=== PATIENT | male | born 1970 | race Caucasian/White ===

== ENCOUNTER 2025-08-04 15:39 | Inpatient (IN) ==
--- NOTE | 2025-08-04 16:07 | Emergency Department Note ---
Impression & Plan Acute diverticulitis, Pleural effusion ED Provider Note NAME: ELIA JOHNSON AGE: 55 SEX: M : 1970 ARRIVES VIA: Walk-In INFORMANT: Patient, ED PROVIDER(S): Geovani Thomas DO CHIEF COMPLAINT: Abdominal pain HPI: The patient is a 55-year-old male who presented to the emergency department for evaluation of left-sided abdominal pain. The patient started having left- sided back pain over the course of the last few days. The patient states he went to see his family doctor today. He was having some low-grade fevers. He was sent for CT of the abdomen pelvis. He was advised to come to emergency department for admission and IV antibiotics. ROS: See above HPI for pertinent positives & negatives. A total of 10 systems reviewed and were otherwise negative. PAST MEDICAL HISTORY: See Below PAST SURGICAL HISTORY: See Below FAMILY HISTORY: See Below SOCIAL HISTORY: See Below HOME MEDICATIONS: See Below ALLERGIES: See Below VITALS: See Below PHYSICAL EXAMINATION: GENERAL: Patient is awake alert in no acute distress patient is resting comfortably and showing no signs of anxiety EYES: The conjunctivae are clear. The pupils are round and reactive. EARS, NOSE, MOUTH AND THROAT: The nose is without any evidence of any deformity. NECK: The neck is nontender and supple. RESPIRATORY: Normal respiratory effort is noted there is no evidence of wheezing rhonchi or rales CARDIOVASCULAR: Regular rate and rhythm noted there no murmurs rubs or gallops normal S1 normal S2. GASTROINTESTINAL: The abdomen was mildly distended. There is diffuse tenderness to palpation with guarding in the left upper and left lower quadrants. MUSCULOSKELETAL/EXTREMITIES: There is no evidence of gross deformity full range of motion is noted in the hips and shoulders. SKIN: There is no obvious evidence of any rash. There are no petechiae, pallor or cyanosis noted. NEUROLOGIC: Patient is awake alert and oriented x3. Gait was steady. MEDICAL DECISION MAKING: The patient is a 55-year-old male who presented to the emergency department for an evaluation of abdominal pain. The patient was seen by his family doctor. The patient had an outpatient CAT scan which did show diverticulitis with microperforation. The patient was told to come to the emergency department for further evaluation. The patient was treated with IV antibiotics in emergency department. I discussed the patient's laboratory and radiographic studies with him. He was found to have signs of pleural effusion on CT which I think is likely due to diaphragmatic irritation. There was also a questionable area that could be a pulmonary embolism. The patient denies having any chest pain. He was not tachycardic. I discussed the patient's CT findings with the admitting team. I will defer to them whether or not they wish to repeat the CAT scan including the chest as well at this time. Triage Nursing notes reviewed. Prior medical records reviewed Vital Signs: reviewed and remarkable for no significant abnormalities Differential diagnosis: Etiologies such as appendicitis, diverticulitis, obstruction, inflammatory bowel disease, renal colic, PUD, biliary pathology, pancreatitis, mesenteric ischemia, aortic pathology, infections, genitourinary, UTI, perforated viscus, as well as others were entertained. ER treatment provided: See below Diagnostics interpreted by me: ECG: none Cardiac Monitoring: An order was placed for continuous cardiac monitoring. The monitor shows a rate of 81 bpm with sinus rhythm. Laboratory studies: As stated above and show below. Imaging studies: See below. Radiographic imaging was reviewed by myself Consultation(s): I discussed this case with Dr. Vasquez who is on-call for the [facility] hospitalist group. Past Med/Surg History Problem List (Updated 08/04/25 @ 16:48 by Geovani Thomas DO) Pleural effusion (Acute) Acute diverticulitis (Acute) Diverticulitis of large intestine with perforation Multiple lung nodules on CT Solitary lung nodule (Chronic) Prostate cancer (Chronic 06/30/20) Medical History History of rheumatic fever As a child age 5 Elevated PSA 06/19/2020 - 24.500 Surgical History History of prostatectomy (08/22/20) @ [facility] with Dr. Darell Roth History of prostate biopsy (06/30/20) Family History Mother Colorectal cancer, Onset Age: 70 Radiation & Chemo - Doing well currently Father No problems noted. Brother No problems noted. Sister No problems noted. Sister No problems noted. Son No problems noted. Daughter No problems noted. Daughter No problems noted. Daughter No problems noted. Social History Smoking Status: Never smoker Do You Dip or Chew Tobacco: No; Hx Alcohol Use: Yes Alcohol Intake Frequency: Monthly or Less Hx Substance Use: No Preferred Language: Yakut Visual Impairment: Limited Hearing Ability: Normal Beliefs That Will Affect Care: None marital status: Current Living Situation: Spouse current occupational status: employed current occupation: Education @ [employer] How many Children do You have: 4 Feels Safe at Home: Yes Childhood Exposure to Second-Hand Smoke: Yes (Mother smoked in home ) Diet: regular caffeine: Yes (2 cups of coffee/day ) during the past year weight has: remained stable Dental Care, Regularly: Yes Allergies Allergies Allergy/AdvReac Type Severity Reaction Status Date / Time No Known Allergies Allergy Verified 08/04/25 16:29 Home Meds Home Medications Medication Instructions Recorded Confirmed ascorbic acid (vitamin C) 500 mg 500 mg PO DAILY 07/25/20 08/04/25 capsule cholecalciferol (vitamin D3) 25 25 mcg PO DAILY 07/25/20 08/04/25 mcg (1,000 unit) capsule multivitamin 1 tab PO DAILY 07/25/20 08/04/25 olmesartan 20 mg tablet (Benicar) 20 mg PO DAILY 01/02/21 08/04/25 calcium 600 mg (as 1 tab PO DAILY 07/13/21 08/04/25 carbonate)-vitamin D3 10 mcg (400 unit) tablet (Calcium with Vitamin D) Immu-Power Ahcc 1 tab PO DIRECTED 08/04/25 08/04/25 omega-3 fatty acids 1,000 mg 1,000 mg PO DAILY 08/04/25 08/04/25 capsule Results & Data (ED) Vital Signs Vital Signs - 24 hr 08/04/25 15:46 Temperature 36.7 C Temperature Source Temporal Artery Scan Pulse Rate 81 Respiratory Rate 18 Respiratory Effort / Characteristics Non-Labored Respiratory Depth Normal Blood Pressure 144/87 H Blood Pressure Mean 106 Pulse Oximetry 96 Oxygen Delivery Method Room Air Sepsis Recent Fever Within 48 Hours No Sepsis New/Unexplained Change in Mental Status No Sepsis Action Taken by Nursing No Action Required Home Medications Current Medication List: was personally reviewed by me Laboratory Data Attestation: I reviewed the patient's lab results. 08/04/25 16:11 08/04/25 16:11 Lab Results 08/04/25 08/04/25 Range/Units 16:11 16:14 WBC 7.86 (4.8-10.8) K/ul RBC 4.26 L (4.70-6.10) M/uL Hgb 12.7 L (14.0-18.0) g/dl Hct 37.0 L (42.0-52.0) % MCV 86.9 (80.0-100.0) fL MCH 29.8 (25.0-34.0) pg MCHC 34.3 (32.0-36.0) g/dL RDW Std Deviation 39.8 (36.4-46.3) fL RDW Coeff of Henny 12.6 (11.5-14.5) % Plt Count 359 (130-400) K/uL MPV 8.3 L (9.4-12.4) fL Immature Gran % (Auto) 0.4 % Neut % (Auto) 65.2 % Lymph % (Auto) 20.0 % Morton % (Auto) 8.3 % Eos % (Auto) 5.7 % Baso % (Auto) 0.4 % Neut # (Auto) 5.13 (1.40-6.50) K/uL Lymph # (Auto) 1.57 (1.20-3.40) K/uL Morton # (Auto) 0.65 H (0.11-0.59) K/uL Eos # (Auto) 0.45 (0.00-0.50) K/uL Baso # (Auto) 0.03 (0.00-0.20) K/uL Immature Gran # (Auto) 0.03 (0.01-0.20) K/uL Urine Color Yellow Urine Appearance Clear (Clear) Urine pH 5.0 (4.5-7.5) Ur Specific Buchanan 1.042 H (1.000-1.030) Urine Protein Negative (Negative) Urine Glucose (UA) Negative (Negative) Urine Ketones Negative (Negative) Urine Blood Negative (Negative) Urine Nitrite Negative (Negative) Urine Bilirubin Negative (Negative) Urine Urobilinogen Negative (Negative) Ur Leukocyte Esterase Negative (Negative) Urine Comment Imaging Data Attestation: I personally reviewed and interpreted this imaging study as follows: My Impression: I reviewed the patient's outpatient CAT scan. My interpretation is diverticulitis noted, pleural effusion was noted on the lung windows, final report in the patient's EMR. Discharge Plan Visit Data Chief Complaint: GI Assessment Stated Complaint: REF BY DOC, HAD CT EARLIER, DX OF DIVERTICULITIS ED Provider: Geovani Thomas Discharge Problem: Acute diverticulitis, Pleural effusion Patient Disposition: Being Evaluated by Hospitalist Condition: Fair Forms Stand Alone Forms: My [facility] Prescriptions Prescriptions: No Action multivitamin Tablet 1 tab PO DAILY ascorbic acid (vitamin C) 500 mg capsule 500 mg PO DAILY cholecalciferol (vitamin D3) 25 mcg (1,000 unit) capsule 25 mcg PO DAILY calcium carbonate-vitamin D3 [Calcium with Vitamin D] 600 mg(1,500mg) -400 unit tablet 1 tab PO DAILY olmesartan [Benicar] 20 mg tablet 20 mg PO DAILY omega-3 fatty acids 1,000 mg Capsule 1,000 mg PO DAILY Immu-Power Ahcc 1 tab PO DIRECTED Rx Instructions: TAKES 1 TAB QAM, THEN 2 TABS QPM Referrals Referrals: Reynold Moeller [Primary Care Provider] -
--- NOTE | 2025-08-04 16:29 | History & Physical Report ---
Date of Service August 04, 2025 Assessment & Plan (1) Diverticulitis of large intestine with perforation: (2) Pleural effusion: Plan In summary this is a 55-year-old male who presented to the [facility] after an outpatient CT abdomen pelvis with intravenous contrast revealed mid descending colonic diverticulitis with extraluminal air pocket formation. #Acute diverticulitis of the descending colon with perforation Patient presented with subjective fever, progressive abdominal pain; patient does not have any acute findings on physical exam concerning for an acute abdomen nor peritonitis; CT abdomen pelvis with intravenous contrast was reviewed, concerning for extraluminal air pocket formation without free air in the abdomen; blood cultures have been obtained in the emergency department; CRP is elevated to 10.9, reducing the potential risk for progression of further complication which is typically seen at measures greater than 14 Obtain vital signs every 4 hours for 24 hours then per shift Out of bed to chair, gradually activity as the patient tolerates Clear liquid diet, gradually based on tolerance; if patient is unable to tolerate clear liquid diet, please contact attending physician to initiate intravenous fluids at maintenance rate Measure intake and output every shift Continue Zosyn 4.5 g IV every 8 hours Follow daily CBC with manual differential, renal function panel General Surgery has been consulted given the patient's risk for progression including pericolic extraluminal air, fluid collections, the length of the colonic segment affected, symptom duration Admission and Anticipated Discharge Date Admission Date: 08/04/2025 Anticipated date of discharge: 08/06/25 History of Present Illness Chief Complaint: Left sided abdominal pain Primary Care Provider: Reynold Moeller Mr. Piedra is a 55-year-old male whose active medical conditions include prostate cancer in sustained remission, essential hypertension, who presented to the [facility] on 08/[address] abdomen pelvis with contrast revealed acute diverticulitis. The patient reports beginning on 07/30 the experience left upper quadrant abdominal pain that was sharp and intermittent in nature without radiation. Over the subsequent 5 days their abdominal pain progressively involved more of the left lower quadrant. They endorse anorexia, nausea, decreased flatulence and bowel movement frequency, subjective fevers, chills. They deny any increasing abdominal distention, eructation, hematemesis, hematochezia, melanotic stool. They have not been on any recent antibiotic courses. There have been no recent colonic procedures or colonoscopies. Allergies Allergy/AdvReac Type Severity Reaction Status Date / Time No Known Allergies Allergy Verified 08/04/25 16:29 Home Medications Medication Instructions Recorded Confirmed Type ascorbic acid (vitamin C) 500 mg 500 mg PO DAILY 07/25/20 08/04/25 History capsule cholecalciferol (vitamin D3) 25 25 mcg PO DAILY 07/25/20 08/04/25 History mcg (1,000 unit) capsule multivitamin 1 tab PO DAILY 07/25/20 08/04/25 History olmesartan 20 mg tablet (Benicar) 20 mg PO DAILY 01/02/21 08/04/25 History calcium 600 mg (as 1 tab PO DAILY 07/13/21 08/04/25 History carbonate)-vitamin D3 10 mcg (400 unit) tablet (Calcium with Vitamin D) Immu-Power Ahcc 1 tab PO DIRECTED 08/04/25 08/04/25 History omega-3 fatty acids 1,000 mg 1,000 mg PO DAILY 08/04/25 08/04/25 History capsule Past Med/Surg History Problem List (Updated 08/04/25 @ 17:00 by Jay Vasquez DO) Pleural effusion (Acute) Diverticulitis of large intestine with perforation Multiple lung nodules on CT Medical History (Updated 08/04/25 @ 17:00 by Jay Vasquez DO) Prostate cancer (06/30/20) History of rheumatic fever As a child age 5 Elevated PSA 06/19/2020 - 24.500 Surgical History History of prostatectomy (08/22/20) @ [facility] with Dr. Darell Roth History of prostate biopsy (06/30/20) Family History (Updated 08/04/25 @ 17:00 by Jay Vasquez DO) Mother Colorectal cancer, Onset Age: 70 Radiation & Chemo - Doing well currently Father No problems noted. Brother No problems noted. Sister Colon cancer Sister No problems noted. Son No problems noted. Daughter No problems noted. Daughter No problems noted. Daughter No problems noted. 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: 4 Feels Safe at Home: Yes Childhood Exposure to Second-Hand Smoke: Yes (Mother smoked in home ) Diet: regular caffeine: Yes (2 cups of coffee/day ) during the past year weight has: remained stable Dental Care, Regularly: Yes Review of Systems Review of Systems: Review of constitutional, gastrointestinal, cardiovascular, pulmonary systems was unremarkable other than as documented in the HPI above Physical Exam Physical Exam: General: Adult male in no acute distress Vital Signs: Reviewed HEENT: Tacky mucous membranes; pupils equally round reactive to light; extraocular motion intact Pulmonary: Symmetric chest wall rise, restricted secondary to left upper abdominal quadrant pain at end phase inhalation; clear to auscultation bilaterally Cardiovascular: Regular rate and rhythm without murmurs, rubs, or gallops; S1 and S2 normal; bilateral radial pulse 2+ Gastrointestinal: Soft, nondistended; low-frequency high-pitched bowel sounds present throughout the abdomen; tender to deep palpation in the left upper th rough lower quadrant and in the left flank without radiation; the remaining abdomen is nontender to palpation; there is no guarding nor peritoneal findings present on exam at this time; percussion does not elicit significant tenderness Neurologic: Cranial nerves II through XII grossly intact; no discernible focal weakness nor paresthesia Results & Data Results & Data Vital Signs (Past 12 Hours) Vital Signs Temp Pulse Resp BP Pulse Ox O2 Del Method 08/04/25 15:46 36.7 C 81 18 144/87 H 96 Room Air Laboratory Results CBC is relatively unremarkable Elevated total bilirubin of 1.1 CRP 10[address] abdomen pelvis with intravenous contrast obtained 08/04 in the outpatient setting is remarkable for descending colonic acute diverticulitis with pe ricolonic fat stranding, peritoneal thickening with extraluminal air loculation within the left paracolic gutter without a well-defined abscess for percutaneous intervention Code Status & VTE Plan Code Status Full code VTE Prophylaxis Plan VTE Prophylaxis will be ordered: Yes PG Care Time/CCT Total # of Minutes Spent Total Time Spent with Patient: Total time spent is greater than 50% in coordination of care (as documented) at patient's floor/unit and/or counseling patient: Coding Level of Care Code 91736 INT INP/OBS CARE MIN Diagnoses Diverticulitis of large intestine with perforation without bleeding K57.20 Diverticulitis bleeding: without bleeding Pleural effusion J90 (1) Diverticulitis of large intestine with perforation Diverticulitis bleeding: without bleeding Qualified Code(s): K57.20 - Diverticulitis of large intestine with perforation and abscess without bleeding
[2025-08-04 16:33] LABS: Appearance Urine Clear (Clear); Glucose Urine UA Negative (Negative)
[2025-08-04 16:35] LABS: Hematocrit (blood only) 37.0 % (42.0-52.0); Hemoglobin 12.7 g/dl (14.0-18.0); Immature Granulocytes # (auto) 0.03 K/uL (0.01-0.20); Immature Granulocytes % (auto) 0.4 %; Mean Corpuscular Hemoglobin 29.8 pg (25.0-34.0); Mean Corpuscular Volume 86.9 fL (80.0-100.0); Platelet Count 359 K/uL (130-400); RDW Standard Deviation 39.8 fL (36.4-46.3); Red Blood Count 4.26 M/uL (4.70-6.10); White Blood Count 7.86 K/ul (4.8-10.8)
[2025-08-04] MEDS: PIPERACILLIN/TAZOBACTAM 4.5 GM/100 ML BAG IV ONE (16:51)
[2025-08-04] MEDS: SODIUM CHLORIDE 0.9% 1,000 ML IV ONE (16:51)
[2025-08-04 16:59] LABS: Alanine Aminotransferase 40 U/L (7-52); Albumin Globulin Ratio 1.0 (0.9-2); Albumin Level 4.0 gm/dl (3.4-5.0); Alkaline Phosphatase 71 U/L (34-104); Anion Gap 9 (3-11); Bilirubin,Total 1.1 mg/dl (0.2-1.0); Blood Urea Nitrogen 15 mg/dl (6-23); Calcium 9.2 mg/dl (8.6-10.3); Carbon Dioxide 24 mmol/L (21-32); Chloride 105 mmol/L (98-107); Creatinine Clr Calc Pharmacy 97.9 ml/min; Globulin 3.9 gm/dl (2.5-4.0); Glucose 106 mg/dl (70-99(Fasting)); Lipase 28 U/L (11-82); Sodium 138 mmol/L (136-145); Total Protein 7.9 gm/dl (6.0-8.3)
[2025-08-04 17:48] LABS: Potassium 3.7 mmol/L (3.5-5.1)
[2025-08-04] MEDS: ENOXAPARIN INJ 40 MG/0.4 ML SYR SQ SCH (18:27)
--- NOTE | 2025-08-04 19:56 | Surgery Consultation ---
Date of Consultation August 04, 2025 Assessment & Plan (1) Diverticulitis of large intestine with perforation: The patient has been admitted on the hospitalist service and general surgery has been asked to see secondary to diverticulitis. Recommendations are as follows: Analgesics to be provided Antiemetics to be provided Patient is currently on a clear liquid diet but patient does not have much of an appetite and he does continue to have left-sided abdominal pain, therefore I will back the patient back down to n.p.o. status Will initiate intravenous fluids for hydration Serial labs to be followed The patient is receiving antibiotics in the form of Zosyn which should continue Will consider advancing the patient's diet as his clinical exam improvesWill begin diet advancement at the appropriate time with clear liquids I did discuss with the patient the rationale for conservative management and as patient is nontoxic-appearing at this time I believe conservative measures are warranted Additional recommendations will be forthcoming based on his clinical course as it unfolds History of Present Illness Reason for Consultation: Diverticulitis Attending Physician: Jay Vasquez, History of Present Illness This is a 55-year-old male who presented to [facility] today secondary to abdominal pain. The patient says he for approximately 5 days he has been having some left-sided abdominal pain. He has had associated nausea without emesis. He denies any fevers, shakes, or chills. Patient notes he has never formally been diagnosed with diverticulitis but he has had similar symptoms in the past which self resolved without any active medical treatment. He notes that he felt that his current symptomatology would get better as it had in the past but since it did not resolve over the ensuing 5 days he had an outpatient CT scan performed and truly delineated below, and the results of this prompted his referral to the emergency department. Patient notes that he has had a colonoscopy performed in November of this year and to the best of his knowledge there is no significant pathology noted on this study. Patient notes that he has had prior abdominal surgeries in the form of a robotic prostatectomy performed at [facility]. This patient did have a CT scan of the abdomen pelvis performed this morning. The CT scan showed the patient had acute diverticulitis of the mid descending colon with concern for microperforation as there were extraluminal air locules and trace ascites in the left paracolic gutter. There is no evidence of drainable abscess at this time. There is also moderate fecal retention noted in the rectum. Since arrival to [facility] the patient has had labs performed including CBC were white blood cell count platelet count were normal. Hemoglobin and hematocrit were 12.7 and 37.0. Chemistry profile showed sodium a nd potassium as well as the BUN and creatinine were normal. He had a urinalysis that was not indicative of infection. At the time of my interview he was resting comfortably in bed and he was in no d istress. Allergies Allergy/AdvReac Type Severity Reaction Status Date / Time No Known Allergies Allergy Verified 08/04/25 16:29 Home Medications Medication Instructions Recorded Confirmed Type ascorbic acid (vitamin C) 500 mg 500 mg PO DAILY 07/25/20 08/04/25 History capsule cholecalciferol (vitamin D3) 25 25 mcg PO DAILY 07/25/20 08/04/25 History mcg (1,000 unit) capsule multivitamin 1 tab PO DAILY 07/25/20 08/04/25 History olmesartan 20 mg tablet (Benicar) 20 mg PO DAILY 01/02/21 08/04/25 History calcium 600 mg (as 1 tab PO DAILY 07/13/21 08/04/25 History carbonate)-vitamin D3 10 mcg (400 unit) tablet (Calcium with Vitamin D) Immu-Power Ahcc 1 tab PO DIRECTED 08/04/25 08/04/25 History omega-3 fatty acids 1,000 mg 1,000 mg PO DAILY 08/04/25 08/04/25 History capsule Patient History Medical History Prostate cancer (06/30/20) History of rheumatic fever As a child age 5 Elevated PSA 06/19/2020 - 24.500 Surgical History History of prostatectomy (08/22/20) @ [facility] with Dr. Darell Roth History of prostate biopsy (06/30/20) Family History Mother Colorectal cancer, Onset Age: 70 Radiation & Chemo - Doing well currently Father No problems noted. Brother No problems noted. Sister Colon cancer Sister No problems noted. Son No problems noted. Daughter No problems noted. Daughter No problems noted. Daughter No problems noted. 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 Feels Safe at Home: Yes Childhood Exposure to Second-Hand Smoke: Yes (Mother smoked in home ) Diet: regular caffeine: Yes (2 cups of coffee/day ) during the past year weight has: remained stable Dental Care, Regularly: Yes Review of Systems Review of Systems: All systems reviewed & are unremarkable except as noted in HPI & below Physical Exam Constitutional: WD/WN, vitals as above Eyes: no conjunctival abnormality ENMT: Ears: no hearing impairment and no external ear abnormality Mouth: no oropharynx abnormality Neck: trachea midline Respiratory: normal respiratory effort; no respiratory distress and no labored breathing Cardiovascular: Rate/Rhythm: regular rate and regular rhythm Gastrointestinal (Abdomen): Patient's abdomen is soft, nondistended, nonrigid. Patient does not have any rebound tenderness, guarding, or signs of peritonitis. The patient did have pain with palpation on the left side of his abdomen which appeared to be greatest in the left lower quadrant. Musculoskeletal: No calf tenderness Skin: no rashes Neurologic: moves all extremities Psychiatric: A+Ox3, euthymic affect Results & Data Vital Signs (Past 12 Hours) Vital Signs Temp Pulse Pulse Resp BP BP Pulse Ox 08/04/25 19:33 36.9 C 70 18 142/94 H 95 08/04/25 18:31 71 08/04/25 17:47 37.2 C 71 18 154/96 H 97 08/04/25 17:25 69 20 140/89 97 08/04/25 17:01 73 08/04/25 16:53 73 20 140/89 95 08/04/25 16:52 71 20 95 08/04/25 15:46 36.7 C 81 18 144/87 H 96 O2 Del Method 08/04/25 19:33 Room Air 08/04/25 18:31 08/04/25 17:47 Room Air 08/04/25 17:25 Room Air 08/04/25 17:01 08/04/25 16:53 Room Air 08/04/25 16:52 08/04/25 15:46 Room Air PG Care Time/CCT Total # of Minutes Spent Total Time Spent with Patient: Total time spent is greater than 50% in coordination of care (as documented) at patient's floor/unit and/or counseling patient: Coding Level of Care Code 76741 IN/OBS CONSULT LVL 5,80M Diagnoses Diverticulitis of large intestine with perforation without bleeding K57.20 Diverticulitis bleeding: without bleeding (1) Diverticulitis of large intestine with perforation Diverticulitis bleeding: without bleeding Qualified Code(s): K57.20 - Diverticulitis of large intestine with perforation and abscess without bleeding
[2025-08-04] MEDS: ACETAMINOPHEN 1,000 MG/100 ML VIAL IV STA (19:57)
[2025-08-04] MEDS: SODIUM CHLORIDE 0.9% 1,000 ML IV SCH (20:59)
[2025-08-04] MEDS: PIPERACILLIN/TAZOBACTAM 4.5 GM/100 ML BAG IV SCH (22:36)
--- NOTE | 2025-08-05 07:12 | Hospitalist Progress Note ---
Date of Service August 05, 2025 Assessment & Plan (1) Diverticulitis of large intestine with perforation: (2) Pleural effusion: Plan In summary this is a 55-year-old male who presented to the [facility] after an outpatient CT abdomen pelvis with intravenous contrast revealed mid descending colonic diverticulitis with extraluminal air pocket formation. #Acute diverticulitis of the descending colon with perforation Patient presented with subjective fever, progressive abdominal pain; patient does not have any acute findings on physical exam concerning for an acute abdomen nor peritonitis; CT abdomen pelvis with intravenous contrast was reviewed, concerning for extraluminal air pocket formation without free air in the abdomen; blood cultures have been obtained in the emergency department; CRP is elevated to 10.9, reducing the potential risk for progression of further complication which is typically seen at measures greater than 14 Obtain vital signs per shift Out of bed to chair, gradually activity as the patient tolerates Surgery deescalated to n.p.o with sips of water Measure intake and output every shift Continue Zosyn 4.5 g IV every 8 hours Follow daily CBC with manual differential, renal function panel General Surgery has been consulted given the patient's risk for progression including pericolic extraluminal air, fluid collections, the length of the colonic segment affected, symptom duration Admission and Anticipated Discharge Date Admission Date: August 04, 2025 Anticipated date of discharge: 08/07/25 Subjective Mr. Piedra is a 55-year-old male whose active medical conditions include prostate cancer in sustained remission, essential hypertension, who presented to the [facility] on 08/[address] abdomen pelvis with contrast revealed acute diverticulitis. No acute overnight events; patient feels much improved this morning, still without much appetite but without pain at rest Review of Systems Review of Systems: Review of constitutional, gastrointestinal, cardiovascular, pulmonary systems was unremarkable other than pertinent findings summarized above Physical Exam Physical Exam: General: Adult male in no acute distress Vital Signs: Reviewed HEENT: Moist mucous membranes; pupils equally round reactive to light; extraocular motion intact Pulmonary: Symmetric chest wall rise, no longer with splinting; clear to auscultation bilaterally Cardiovascular: Regular rate and rhythm without murmurs, rubs, or gallops; S1 and S2 normal; bilateral radial pulse 2+ Gastrointestinal: Soft, nondistended; low-frequency high-pitched bowel sounds present throughout the abdomen; tender to deep palpation in the left upper through lower quadrant and in the left flank without radiation; the remaining abdomen is nontender to palpation; there is no guarding nor peritoneal findings present on exam at this time; percussion does not elicit significant tenderness Neurologic: Cranial nerves II through XII grossly intact; no discernible focal weakness nor paresthesia Results & Data Results & Data Vital Signs (Past 12 Hours) Vital Signs Temp Pulse Pulse Resp BP Pulse Ox O2 Del Method 08/05/25 06:58 67 08/05/25 03:44 36.9 C 69 16 137/93 95 Room Air 08/04/25 23:22 36.8 C 67 18 127/78 95 Room Air 08/04/25 21:46 71 08/04/25 19:33 36.9 C 70 18 142/94 H 95 Room Air PG Care Time/CCT Total # of Minutes Spent Total Time Spent with Patient: Total time spent is greater than 50% in coordination of care (as documented) at patient's floor/unit and/or counseling patient: Coding Level of Care Code 84581 SUB INP/OBS CARE MIN Diagnoses Diverticulitis of large intestine with perforation without bleeding K57.20 Diverticulitis bleeding: without bleeding Pleural effusion J90 (1) Diverticulitis of large intestine with perforation Diverticulitis bleeding: without bleeding Qualified Code(s): K57.20 - Diverticulitis of large intestine with perforation and abscess without bleeding
[2025-08-05] MEDS: LACTATED RINGER'S 1,000 ML IV SCH (07:51)
[2025-08-05 08:12] LABS: Hematocrit (blood only) 34.9 % (42.0-52.0); Hemoglobin 11.8 g/dl (14.0-18.0); Immature Granulocytes # (auto) 0.02 K/uL (0.01-0.20); Immature Granulocytes % (auto) 0.3 %; Mean Corpuscular Hemoglobin 29.3 pg (25.0-34.0); Mean Corpuscular Volume 86.6 fL (80.0-100.0); Platelet Count 307 K/uL (130-400); RDW Standard Deviation 39.4 fL (36.4-46.3); Red Blood Count 4.03 M/uL (4.70-6.10); White Blood Count 5.81 K/ul (4.8-10.8)
[2025-08-05 09:03] LABS: Albumin Level 3.5 gm/dl (3.4-5.0); Anion Gap 8.0 (3-11); Blood Urea Nitrogen 13.0 mg/dl (6-23); Calcium 8.5 mg/dl (8.6-10.3); Carbon Dioxide 22.0 mmol/L (21-32); Chloride 109.0 mmol/L (98-107); Creatinine Clr Calc Pharmacy 83.3 ml/min; Glucose 107.0 mg/dl (70-99(Fasting)); Potassium 3.8 mmol/L (3.5-5.1); Sodium 139.0 mmol/L (136-145)
--- NOTE | 2025-08-05 09:45 | Surgery Progress Note ---
Date of Service August 05, 2025 Assessment & Plan (1) Diverticulitis of large intestine with perforation: Plan: He may have sips of clears today Continue his IV antibiotics His white blood cell count is normal and he is afebrile No plans for any surgical intervention Admission and Anticipated Discharge Date Admission Date: August 04, 2025 Subjective Patient seen and examined. Still with some left-sided abdominal pain. Afebrile. Review of Systems Constitutional: no fever and no chills Respiratory: no cough and no dyspnea Cardiovascular: no chest pain and no dyspnea on exertion Gastrointestinal: + abdominal pain; no nausea and no vomit ing Genitourinary: no dysuria, no post-void dribbling or no nocturia Integumentary: no acne and no lesions Psychiatric: no behavioral changes and no depression Hematologic / Lymphatic: no easy bleeding and no easy bruising Physical Exam Constitutional: WD/WN, vitals as above Respiratory: normal respiratory effort, lungs clear to auscultation Cardiovascular: RRR, no murmur, no edema Gastrointestinal (Abdomen): Inspection/Auscultation: abdomen normal to inspection; abdomen not distended Percussion/Palpation: + abdomen tender (Left side) and abdomen soft Skin: no rashes, warm and dry Results & Data Vital Signs (Past 12 Hours) Vital Signs Temp Pulse Pulse Resp BP Pulse Ox Pulse Ox 08/05/25 09:00 08/05/25 08:16 36.7 C 70 16 148/85 H 08/05/25 06:58 67 08/05/25 03:44 36.9 C 69 16 137/93 08/04/25 23:22 36.8 C 67 18 127/78 08/04/25 21:46 71 O2 Del Method O2 Del Method 08/05/25 09:00 Room Air 08/05/25 08:16 Room Air 08/05/25 06:58 08/05/25 03:44 Room Air 08/04/25 23:22 Room Air 08/04/25 21:46 PG Care Time/CCT Total # of Minutes Spent Total Time Spent with Patient: Total time spent is greater than 50% in coordination of care (as documented) at patient's floor/unit and/or counseling patient: Coding Level of Care Code 07016 SUB INP/OBS CARE 12/04MIN Diagnoses Diverticulitis of large intestine with perforation without bleeding K57.20 Diverticulitis bleeding: without bleeding (1) Diverticulitis of large intestine with perforation Diverticulitis bleeding: without bleeding Qualified Code(s): K57.20 - Diverticulitis of large intestine with perforation and abscess without bleeding
[2025-08-05] MEDS: KETOROLAC 30 MG/ML VIAL IV ONE (12:24)
--- NOTE | 2025-08-06 05:37 | Surgery Progress Note ---
Date of Service August 06, 2025 Assessment & Plan (1) Diverticulitis of large intestine with perforation: Plan: Patient has been admitted on the hospitalist service. Surgical recommendations are as follows: He has been allowed sips of clear liquids; if clinical improvement continues consideration be given to advancing diet further Continue intravenous fluids until diet can be advanced further and is reliable Provide analgesics as needed Continue antibiotics in form of Zosyn Encourage ambulation Check a.m. labs when available Lovenox is in place for DVT prevention Admission and Anticipated Discharge Date Admission Date: August 04, 2025 Supervising Physician Co-Signing Physician Notes I have seen and examined this pt this am. Agree with this plan Subjective Patient is resting comfortably in bed. He notes he has little in the way of abdominal pain at the time of my exam. He denies moving his bowels since admission but is passing small amount of flatus. He denies any nausea or vomiting. Physical Exam Gastrointestinal (Abdomen): Abdomen is soft without distention. Patient has little in the way of abdominal pain with palpation. There is no rebound tenderness or guarding. Results & Data Vital Signs (Past 12 Hours) Vital Signs Temp Pulse Pulse Resp BP Pulse Ox O2 Del Method 08/06/25 04:24 36.8 C 62 12 132/79 97 Room Air 08/06/25 00:06 37 C 66 16 143/77 H 96 Room Air 08/05/25 21:58 63 08/05/25 19:00 36.9 C 65 12 144/83 H 95 Room Air PG Care Time/CCT Total # of Minutes Spent Total Time Spent with Patient: Total time spent is greater than 50% in coordination of care (as documented) at patient's floor/unit and/or counseling patient: Coding Level of Care Code 54299 SUB INP/OBS CARE 12/04MIN Diagnoses Diverticulitis of large intestine with perforation without bleeding K57.20 Diverticulitis bleeding: without bleeding (1) Diverticulitis of large intestine with perforation Diverticulitis bleeding: without bleeding Qualified Code(s): K57.20 - Diverticulitis of large intestine with perforation and abscess without bleeding
--- NOTE | 2025-08-06 07:27 | Hospitalist Progress Note ---
Date of Service August 06, 2025 Assessment & Plan (1) Diverticulitis of large intestine with perforation: (2) Pleural effusion: Plan In summary this is a 55-year-old male who presented to the [facility] after an outpatient CT abdomen pelvis with intravenous contrast revealed mid descending colonic diverticulitis with extraluminal air pocket formation. #Acute diverticulitis of the descending colon with perforation Patient presented with subjective fever, progressive abdominal pain; patient does not have any acute findings on physical exam concerning for an acute abdomen nor peritonitis; CT abdomen pelvis with intravenous contrast was reviewed, concerning for extraluminal air pocket formation without free air in the abdomen; blood cultures have been obtained in the emergency department; CRP is elevated to 10.9, reducing the potential risk for progression of further complication which is typically seen at measures greater than 14 Obtain vital signs per shift Out of bed to chair, gradually activity as the patient tolerates Start clear liquid diet on 08/06, advance or deescalate as patient tolerates Measure intake and output every shift Continue Zosyn 4.5 g IV every 8 hours Follow daily CBC with manual differential, renal function panel General Surgery has been consulted given the patient's risk for progression including pericolic extraluminal air, fluid collections, the length of the colonic segment affected, symptom duration Admission and Anticipated Discharge Date Admission Date: August 04, 2025 Subjective Mr. Piedra is a 55-year-old male whose active medical conditions include prostate cancer in sustained remission, essential hypertension, who presented to the [facility] on 08/[address] abdomen pelvis with contrast revealed acute diverticulitis. No acute overnight events; continues to feel improved, small amount of flatus passed in the past 24 hours Review of Systems Review of Systems: Review of constitutional, gastrointestinal, cardiovascular, pulmonary systems was unremarkable other than pertinent findings summarized above Physical Exam Physical Exam: General: Adult male in no acute distress Vital Signs: Reviewed HEENT: Moist mucous membranes; pupils equally round reactive to light; extraocular motion intact Pulmonary: Symmetric chest wall rise, no longer with splinting; clear to auscultation bilaterally Cardiovascular: Regular rate and rhythm without murmurs, rubs, or gallops; S1 and S2 normal; bilateral radial pulse 2+ Gastrointestinal: Soft, nondistended; low-frequency high-pitched bowel sounds present throughout the abdomen; improved but still present tenderness to deep palpation in the left upper through lower quadrant and in the left flank without radiation; the remaining abdomen is nontender to palpation; there is no guarding nor peritoneal findings present on exam at this time; percussion does not elicit significant tenderness Neurologic: Cranial nerves II through XII grossly intact; no discernible focal weakness nor paresthesia Results & Data Results & Data Vital Signs (Past 12 Hours) Vital Signs Temp Pulse Pulse Resp BP Pulse Ox Pulse Ox 08/06/25 05:00 97 08/06/25 04:24 36.8 C 62 12 132/79 97 08/06/25 00:06 37 C 66 16 143/77 H 96 08/05/25 21:58 63 O2 Del Method O2 Del Method 08/06/25 05:00 Room Air 08/06/25 04:24 Room Air 08/06/25 00:06 Room Air 08/05/25 21:58 PG Care Time/CCT Total # of Minutes Spent Total Time Spent with Patient: Total time spent is greater than 50% in coordination of care (as documented) at patient's floor/unit and/or counseling patient: Coding Level of Care Code 03813 SUB INP/OBS CARE MIN Diagnoses Diverticulitis of large intestine with perforation without bleeding K57.20 Diverticulitis bleeding: without bleeding Pleural effusion J90 (1) Diverticulitis of large intestine with perforation Diverticulitis bleeding: without bleeding Qualified Code(s): K57.20 - Diverticulitis of large intestine with perforation and abscess without bleeding
[2025-08-06 07:45] LABS: Hematocrit (blood only) 37.5 % (42.0-52.0); Hemoglobin 12.8 g/dl (14.0-18.0); Immature Granulocytes # (auto) 0.02 K/uL (0.01-0.20); Immature Granulocytes % (auto) 0.3 %; Mean Corpuscular Hemoglobin 29.5 pg (25.0-34.0); Mean Corpuscular Volume 86.4 fL (80.0-100.0); Platelet Count 354 K/uL (130-400); RDW Standard Deviation 37.7 fL (36.4-46.3); Red Blood Count 4.34 M/uL (4.70-6.10); White Blood Count 6.27 K/ul (4.8-10.8)
[2025-08-06 08:02] LABS: Anion Gap 10.0 (3-11); Blood Urea Nitrogen 15.0 mg/dl (6-23); Carbon Dioxide 25.0 mmol/L (21-32); Chloride 104.0 mmol/L (98-107); Creatinine Clr Calc Pharmacy 81.3 ml/min; Glucose 87.0 mg/dl (70-99(Fasting)); Potassium 3.6 mmol/L (3.5-5.1); Sodium 139.0 mmol/L (136-145)
[2025-08-06 08:03] LABS: Albumin Level 3.7 gm/dl (3.4-5.0); Calcium 8.7 mg/dl (8.6-10.3)
[2025-08-06 22:30] VITALS: O2SAT 95
[2025-08-07 03:14] VITALS: RESP 16
--- NOTE | 2025-08-07 04:52 | Surgery Progress Note ---
Date of Service August 07, 2025 Assessment & Plan (1) Diverticulitis of large intestine with perforation: Plan: Patient has been admitted on the hospitalist service. Surgical recommendations are as follows: Continue full liquid diet for the present time. If clinical improvement continues and labs are acceptable consideration be given to further advancing diet r Continue analgesics as needed Continue antibiotics in form of Zosyn; plan to transition to oral antibiotics at time of discharge Encourage ambulation Check a.m. labs when available Lovenox is in place for DVT prevention Admission and Anticipated Discharge Date Admission Date: August 04, 2025 Supervising Physician Co-Signing Physician Notes I have seen and examined this patient this am. He has tolerated a low fiber diet for breakfast this am. He continues to deny abdominal pain. Surgery will sign off at this time. Discharge per medicine. Subjective Patient is resting comfortably in bed. He says he had his diet advanced to full liquids which he tolerated without exacerbating abdominal pain. He also denies any nausea or vomiting. He notes he is passing a considerable amount of flatus but has not had a bowel movement yet. He offers no complaints at this time. Physical Exam Gastrointestinal (Abdomen): Abdomen is soft without distention. There is no rebound tenderness, guarding, and no pain with palpation. Results & Data Vital Signs (Past 12 Hours) Vital Signs Temp Pulse Pulse Resp BP Pulse Ox O2 Del Method 08/07/25 03:14 36.9 C 63 16 131/77 95 Room Air 08/06/25 22:29 37.1 C 57 L 18 148/84 H 95 Room Air 08/06/25 21:44 60 08/06/25 19:49 37.0 C 67 16 163/78 H 93 Room Air PG Care Time/CCT Total # of Minutes Spent Total Time Spent with Patient: Total time spent is greater than 50% in coordination of care (as documented) at patient's floor/unit and/or counseling patient: Coding Level of Care Code 53273 SUB INP/OBS CARE 12/04MIN Diagnoses Diverticulitis of large intestine with perforation without bleeding K57.20 Diverticulitis bleeding: without bleeding (1) Diverticulitis of large intestine with perforation Diverticulitis bleeding: without bleeding Qualified Code(s): K57.20 - Diverticulitis of large intestine with perforation and abscess without bleeding
--- NOTE | 2025-08-07 08:01 | Hospitalist Progress Note ---
Date of Service August 07, 2025 Assessment & Plan Admission and Anticipated Discharge Date Admission Date: August 04, 2025 Results & Data Results & Data Vital Signs (Past 12 Hours) Vital Signs Temp Pulse Pulse Resp BP Pulse Ox O2 Del Method 08/07/25 06:52 54 L 08/07/25 03:14 36.9 C 63 16 131/77 95 Room Air 08/06/25 22:29 37.1 C 57 L 18 148/84 H 95 Room Air 08/06/25 21:44 60 PG Care Time/CCT Total # of Minutes Spent Total Time Spent with Patient: Total time spent is greater than 50% in coordination of care (as documented) at patient's floor/unit and/or counseling patient: Coding
[2025-08-07 08:10] LABS: Hematocrit (blood only) 38.3 % (42.0-52.0); Hemoglobin 12.8 g/dl (14.0-18.0); Immature Granulocytes # (auto) 0.03 K/uL (0.01-0.20); Immature Granulocytes % (auto) 0.6 %; Mean Corpuscular Hemoglobin 28.8 pg (25.0-34.0); Mean Corpuscular Volume 86.1 fL (80.0-100.0); Platelet Count 365 K/uL (130-400); RDW Standard Deviation 37.8 fL (36.4-46.3); Red Blood Count 4.45 M/uL (4.70-6.10); White Blood Count 4.97 K/ul (4.8-10.8)
[2025-08-07 08:33] VITALS: PULSE 61; TEMP 98.6
[2025-08-07] MEDS: KETOROLAC 30 MG/ML VIAL IV ONE (08:59)
[2025-08-07 09:12] LABS: Albumin Level 3.8 gm/dl (3.4-5.0); Anion Gap 9.0 (3-11); Blood Urea Nitrogen 10.0 mg/dl (6-23); Calcium 8.9 mg/dl (8.6-10.3); Carbon Dioxide 24.0 mmol/L (21-32); Chloride 106.0 mmol/L (98-107); Creatinine Clr Calc Pharmacy 82.5 ml/min; Glucose 99.0 mg/dl (70-99(Fasting)); Potassium 3.9 mmol/L (3.5-5.1); Sodium 139.0 mmol/L (136-145)
[2025-08-07] MEDS: LOSARTAN POTASSIUM 50 MG TAB PO SCH (10:51)
[2025-08-07] MEDS: INFLUENZA VACC TS2025-26(6m+)/PF (IIV3) 0.5mL Syr IM ONE (11:03)
[2025-08-07 11:09] VITALS: BP 162/98
--- NOTE | 2025-08-07 20:05 | Discharge Summary ---
Discharge Summary Date of Service August 07, 2025 Principal Dx & Hospital Course #1 = Principal Diagnosis (1) Diverticulitis of large intestine with perforation: (2) Pleural effusion: Plan In summary this is a 55-year-old male who presented to the [facility] after an outpatient CT abdomen pelvis with intravenous contrast revealed mid descending colonic diverticulitis with extraluminal air pocket formation. #Acute diverticulitis of the descending colon with perforation Patient presented with subjective fever, progressive abdominal pain; patient at presentation did not exhibit any acute findings on physical exam concerning for an acute abdomen nor peritonitis; CT abdomen pelvis with intravenous contrast was reviewed, concerning for extraluminal air pocket formation without free air in the abdomen; blood cultures have been obtained in the emergency department; CRP is elevated to 10.9, reducing the potential risk for progression of further complication which is typically seen at measures greater than 14; the patient was able to progress their diet without difficulty or recurrence of their symptoms Treated with Zosyn 4.5 g IV every 8 hours from 08/05 through 08/07; continue with Augmentin 875/125 mg p.o. twice daily through 08/11 for a total 7 day course Admission HPI Per Admitting Provider Mr. Piedra is a 55-year-old male whose active medical conditions include prostate cancer in sustained remission, essential hypertension, who presented to the [facility] on 08/[address] abdomen pelvis with contrast revealed acute diverticulitis. The patient reports beginning on 07/30 the experience left upper quadrant abdominal pain that was sharp and intermittent in nature without radiation. Over the subsequent 5 days their abdominal pain progressively involved more of the left lower quadrant. They endorse anorexia, nausea, decreased flatulence and bowel movement frequency, subjective fevers, chills. They deny any increasing abdominal distention, eructation, hematemesis, hematochezia, melanotic stool. They have not been on any recent antibiotic courses. There have been no recent colonic procedures or colonoscopies. Discharge Exam General: Adult male in no acute distress Vital Signs: Reviewed HEENT: Moist mucous membranes; pupils equally round reactive to light; extraocular motion intact Pulmonary: Symmetric chest wall rise, no longer with splinting; clear to auscultation bilaterally Cardiovascular: Regular rate and rhythm without murmurs, rubs, or gallops; S1 and S2 normal; bilateral radial pulse 2+ Gastrointestinal: Soft, nondistended; high-frequency normal-pitched bowel sounds present throughout the abdomen; improved but still present tenderness to deep palpation in the left upper through lower quadrant without radiation; the remaining abdomen is nontender to palpation; there is no guarding nor peritoneal findings present on exam at this time; percussion does not elicit tenderness Neurologic: Cranial nerves II through XII grossly intact; no discernible focal weakness nor paresthesia Discharge Plan Discharge Items Patient Disposition: Home - Self-Care Reason For Visit: ACUTE DESCENDING DIVERTICULITIS Discharge Diagnosis: Acute descending diverticulitis Condition on Discharge: Fair Activity: Per Instructions section Non-emergency contact: Primary Care Provider Call non-emergency contact if: you have any medication questions Follow-up/Referrals: Alex Colon DO [Primary Care Provider] - (Pt states he will call to schedule his follow up) Diet: Low Fiber Fluids: 2000ml (8 cups) Addtl Attending Provider Instructions: You were admitted to [facility] for acute descending diverticulitis with extraluminal air locules. With respect to your presenting acute diverticulitis, with antibiotic interve ntion, progressive advancement of your diet as tolerated, and bedrest your symptoms have significantly improved. There is been no evidence of systemic infection through laboratory assessment, and general surgery does not recommend any additional intervention at this time. You can anticipate to continue to experience some lower abdominal discomfort over the next 10 to 14 days; if this pain becomes unbearable, is associated with fevers or chills, increased abdominal distention, blood in your stool or other concerning findings then you are encouraged to return to the emergency department for evaluation. We will continue antibiotics through 08/10 for total 7-day course. Thank you for choosing [facility] as your healthcare provider. Pending Studies at Discharge: No Stand-Alone Forms: My [facility], Work/School Release Medications and DC Order Prescriptions: New amoxicillin-pot clavulanate 875-125 mg tablet 1 tab PO Q12H 4 Days Qty: 8 0RF Continued multivitamin Tablet 1 tab PO DAILY ascorbic acid (vitamin C) 500 mg capsule 500 mg PO DAILY cholecalciferol (vitamin D3) 25 mcg (1,000 unit) capsule 25 mcg PO DAILY calcium carbonate-vitamin D3 [Calcium with Vitamin D] 600 mg(1,500mg) -400 unit tablet 1 tab PO DAILY olmesartan [Benicar] 20 mg tablet 20 mg PO DAILY omega-3 fatty acids 1,000 mg Capsule 1,000 mg PO DAILY Immu-Power cc 1 tab PO DIRECTED Rx Instructions: TAKES 1 TAB QAM, THEN 2 TABS QPM Discharge Orders: Discharge Order (Routine); Ordered 08/07/25 Ordered By: Jay Deng/Other Patient Handouts: Diverticulosis and Diverticulitis, How the Colon Works Admission Data Admit Date/Time: 08/04/25 16:25 Attending Provider: Jay Vasquez Admit Provider: Jay Vasquez Primary Care Provider: Alex Colon Other Providers: Jay Vasquez; Sonal Martinez; Sebastián Palacio; Adrian Gates; Reji Cooper; Sebastien Sosa; Ruby Rosado; Royce Lowery; Chu Cruz; Lesia Chicas; Lavonne Maldonado; Manuel Cruz.; Michael English Other Interventions: Discharge Summary Assessment (RN) Last Done: 08/07/25 11:08 Hospital Stay Data Consultations 08/04/25 16:14 ED Decision to Admit Stat 08/04/25 16:27 Consult General Surgery Stat Pending Results Patient Have Any Pending Studies at Discharge: No Discharge Instructions Given to Patient (Per Discharging Provider) You were admitted to [facility] for acute descending diverticulitis with extraluminal air locules. With respect to your presenting acute diverticulitis, with antibiotic intervention, progressive advancement of your diet as tolerated, and bedrest your symptoms have significantly improved. There is been no evidence of systemic infection through laboratory assessment, and general surgery does not recommend any additional intervention at this time. You can anticipate to continue to experience some lower abdominal discomfort over the next 10 to 14 days; if this pain becomes unbearable, is associated with fevers or chills, increased abdominal distention, blood in your stool or other concerning findings then you are encouraged to return to the emergency department for evaluation. We will continue antibiotics through 08/10 for total 7-day course. Thank you for choosing [facility] as your healthcare provider. Total Time Total Time Spent Total Time Spent (In Minutes): I personally spent 35 minutes in the coordination of the patient's discharge including medication reconcilliation, counselling at bedside, physical exam Coding Level of Care Code 54558 INP/OBS DISCH >30 MIN Diagnoses Diverticulitis of large intestine with perforation without bleeding K57.20 Diverticulitis bleeding: without bleeding Pleural effusion J90
== END 2025-08-07 13:15 | disposition home or self-care (01) | DRG 392 ==
LOC: ED 15:39 → 2N 16:25